=== PATIENT | female | born 1975 | race Hispanic/Latino ===

== ENCOUNTER → 2019-11-16 | Outpatient (CLI) | payer OTHER ==
[~2019-11-16] MED LIST: IOPAMIDOL 370 MG/ML 200 ML INFUS..BTL INJ ONE; SODIUM CHLORIDE 0.9% 50ML 50 ML ONE
[2019-11-16 09:23] LABS: BLOOD UREA NITROGEN 13 mg/dL (7-26); BUN/CREATININE RATIO 17 (6-25); CREATININE, SERUM 0.78 mg/dL (0.57-1.11); EST GLOMERULAR FILTRATION RATE > 60 ML/MIN (60-)
--- NOTE | 2019-11-16 10:20 | Diagnostic Imaging Report ---
EXAM: CT Chest WITH contrast- Pulmonary Embolism Protocol INDICATION: ^[id number] ^[id number] ^CP/SOB/HTN COMPARISON: None TECHNIQUE: Chest was scanned utilizing a multidetector helical scanner from the lung apex through the level of the diaphragm after administration of IV contrast. Thin section reconstructions were obtained with special concentration on the pulmonary arteries. Coronal and sagittal reformations were obtained. Pulmonary embolism protocol was performed. IV CONTRAST: 100 cc of Isovue 370 RADIATION DOSE: Total DLP: 576 mGy*cm Dose modulation, iterative reconstruction, and/or weight based adjustment of the mA/kV was utilized to reduce the radiation dose to as low as reasonably achievable. COMPLICATIONS: None FINDINGS: LINES/ TUBES: None. PULMONARY ARTERIES: No filling defect is identified within the pulmonary arteries to the distal segmental level. Main pulmonary artery is of normal size measuring up to 2.4 cm. LUNGS AND AIRWAYS: Large airways are patent. Negative for suspicious consolidation or opacity. Mild dependent atelectasis is noted. No suspicious pulmonary nodule or mass is identified. PLEURA: Negative for pleural effusion or pneumothorax. HEART AND MEDIASTINUM: The thyroid gland is normal. No mediastinal, hilar or axillary lymphadenopathy. Heart is of normal size. Negative for right ventricular enlargement or interventricular septal bowing. There is no pericardial effusion. Thoracic aorta is of normal caliber without significant atherosclerotic disease. Normal three-vessel branching pattern of the arch is noted. UPPER ABDOMEN: Large calcified gallstone is noted within the partially visualized gallbladder. BONES: Negative for acute osseous abnormality. Mild multilevel degenerative changes are noted. No suspicious lytic or blastic lesion. SOFT TISSUES: Unremarkable. IMPRESSION: 1. Negative for pulmonary embolism or secondary signs of right heart strain. 2. Lungs are grossly clear. 3. Incidentally noted cholelithiasis. Signed by: Олег Coffman MD on 11/16/2019 10:17 AM
== END ==
LOC: CT 07:56
DX: R07.9 Chest pain, unspecified (principal); R06.02 Shortness of breath; I10 Essential (primary) hypertension
CPT/HCPCS: 36415; 71260; 82565; 84520; Q9967

== ENCOUNTER → 2019-11-30 | Outpatient (CLI) | payer OTHER ==
--- NOTE | 2019-11-30 15:37 | Diagnostic Imaging Report ---
EXAM: Right upper quadrant abdominal ultrasound INDICATION: Cholelithiasis COMPARISON: None. TECHNIQUE: Transverse and longitudinal images of the right upper quadrant abdomen were obtained FINDINGS: Liver: Size: 15.3 cm in the right midclavicular line, normal Appearance: Increased echogenicity, smooth contour Mass: No focal masses Gallbladder: 2 cm gallstone at the gallbladder fundus. Several smaller stones at the gallbladder neck. No gallbladder wall thickening, gallbladder distention, or pericholecystic fluid. Negative sonographic Rocha's sign. Gallbladder wall measures 3 mm. Bile Ducts: Intrahepatic Ducts: No dilatation Extrahepatic Ducts: Common bile duct measures 3 mm Pancreas: Visualized portions of the pancreatic head, neck and proximal body are normal. Kidney: The right kidney measures 10.0 cm without evidence of hydronephrosis or stone. Vessels: Aorta: Visualized portions are normal Inferior Vena Cava: Visualized portions are normal Main Portal Vein: 1.0 cm, normal size with hepatopetal flow. Free Fluid: No ascites or pleural effusion IMPRESSION: Cholelithiasis without sonographic evidence of cholecystitis. Diffuse hepatic steatosis per Signed by: Winnie Hernandez MD on 11/30/2019 3:34 PM
== END ==
LOC: US 14:32
DX: K80.20 Calculus of gallbladder without cholecystitis without obstruction (principal)
CPT/HCPCS: 76705